=== PATIENT | male | born 1960 | race Two or more races ===

== ENCOUNTER 2019-06-08 06:25 | Day surgery (SDC) | payer OTHER | END 2019-06-08 11:20 | disposition home or self-care (01) | LOC: AMB-ENDOS 06:25 → EDBD 14:15 | DX: K57.30 Diverticulosis of large intestine without perforation or abscess without bleeding (principal); K63.5 Polyp of colon; K64.8 Other hemorrhoids ==

== ENCOUNTER 2019-08-02 07:25 | Day surgery (SDC) | payer OTHER ==
[~2019-08-02 07:25] MED LIST: CLONAZEPAM0.5 MG PO; RESTOR PO; RISPERDAL1 MG PO; ZOLOFT25 MG PO
[2019-08-02] MEDS ORDERED: NEURONTIN300 MG PO (14:33)
[2019-08-02] MEDS ORDERED: KETO10TA2 PO (14:34)
[2019-08-02] MEDS ORDERED: PERCOCET 5-3251 EACH PO (14:34)
[2019-08-02] MEDS ORDERED: RECTICARE30 GM TOP (14:35)
== END 2019-08-02 21:05 | disposition home or self-care (01) ==
LOC: CIR.AMB 07:25
DX: K64.8 Other hemorrhoids (principal); K62.89 Other specified diseases of anus and rectum